=== PATIENT | female | born 1965 | race Caucasian/White ===

== ENCOUNTER 2018-10-18 18:18 | Emergency (ER) | payer OTHER ==
--- OUTSIDE RECORDS SUMMARY | 2018-10-18 19:12 | XMS REPORT | Continuity of Care Document ---
:1965 External Reference #:[id number] Author Name MARTHA Vyas (transmitted by agent of provider Jimmy Ramos) Address [address] 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 Problems Active Problems Provider Date Idiopathic urticaria MARTHA Vyas Onset: 10/14/2018 Allergy to other foods Jimmy Ramos MD Onset: 09/16/2018 Allergic urticaria Jimmy Ramos MD Onset: 09/16/2018 Social History Type Date Description Comments Sex Unknown Tobacco Use Start: Unknown Patient has never smoked Tobacco Use Start: Unknown No Second Hand Smoke Exposure Smoking Status Reviewed: 10/14/18 No Second Hand Smoke Exposure Allergies, Adverse Reactions, Alerts Description No Known Drug Allergies Medications Active Medications SIG Qnty Indications Ordering Provider Date Prednisone take 5 tablets 15tabs L50.0 Ericopher A. 10/14/2018 10mg Tablets by mouth for 3 MD Richard days. take with food. Clarinex one tablet 30tabs L50.0 Jimmy A. 09/16/2018 5mg Tablets every in the MD Richard morning Xyzal 1 tab by mouth 30tabs L50.0 Jimmy A. 09/16/2018 5mg Tablets every evening MD Richard Metronidazole Unknown 0.75% Cream History Medications Prednisone take 5 tablets by 15tabs Jimmy A. 10/07/2018 - 10mg mouth for 3 days. MD Richard 10/14/2018 Tablets take with food. Immunizations Description No Information Available Vital Signs Date Vital Result Comment 10/14/2018 3:35pm BP Systolic 128 mmHg BP Diastolic 78 mmHg Height 64 inches 5'4" Weight 180.00 lb BMI (Body Mass Index) 30.9 kg/m2 Heart Rate 70 /min Respiratory Rate 16 /min O2 % BldC Oximetry 98 % 09/16/2018 4:04pm BP Systolic 122 mmHg BP Diastolic 78 mmHg Height 64 inches 5'4" Weight 180.00 lb BMI (Body Mass Index) 30.9 kg/m2 Heart Rate 74 /min Respiratory Rate 18 /min O2 % BldC Oximetry 96 % Results Description No Information Available Procedures Date Code Description Status 09/16/2018 63657 Allergy Tests Percutaneous W/ Allergenic Extracts Completed Medical Devices Description No Information Available Encounters Type Date Location Provider Dx Diagnosis Office Visit 10/14/2018 3:30p MARTHA Melchor L50.0 Allergic urticaria Z91.018 Allergy to other foods L50.1 Idiopathic urticaria Office Visit 09/16/2018 4:00p Medardo Ramos L50.0 Allergic urticaria Z91.018 Allergy to other foods Assessments Date Code Description Provider 10/14/2018 L50.0 Allergic urticaria MARTHA Vyas 10/14/2018 Z91.018 Allergy to other foods MARTHA Vyas 10/14/2018 L50.1 Idiopathic urticaria MARTHA Vyas 09/16/2018 L50.0 Allergic urticaria Jimmy Ramos MD 09/16/2018 Z91.018 Allergy to other foods Jimmy Ramos MD Plan of Treatment 10/14/2018 - Meet [facility] PAL50.0 Allergic urticariaNew Medication:Prednisone 10 mg - take 5 tablets by mouth for 3 days. take with food.Z91.018 Allergy to other mvptpW78.1 Idiopathic urticariaComments:Patient's Environmental skin test showed 2+ positive to rice and sesame. Patient will stop consuming rice and sesame for 2 weeks. Patient will then reintroduce these foods one at a time back into [facility] and observe for any allergic reaction. If possible, patient should discontinue her antihistamine medications at this time. Patient's liver function and thyroid are both within normal limits. Patient's CBC is also within normal limits. Patient's sed rate and OMAR are both elevated. Patient's sesame and rice IgE blood test both showed negative. Patient to restart prednisone as prescribed for3 days. Patient will start Xyzal in the p.m. and continue Clarinex in the a.m. as suppressive antihistamine therapy. Patient will contact this office in 3 days to update us on her well- being.Patient may be a candidate for Xolair. Patient has been on prednisone numerous times for urticaria exacerbation. Xolair therapy was discussed with patient. Patient given a handout on Xolair. Greater than 50%of the 25-minute visit was spent in discussion of the testing results and treatment options. Functional Status Description No Information Available Mental Status Description No Information Available Referrals Description No Information Available
--- OUTSIDE RECORDS SUMMARY | 2018-10-18 19:12 | XMS REPORT | Continuity of Care Document ---
:1965 External Reference #:[id number] Author Name MARTHA Vyas (transmitted by agent of provider Kaylee Colmenares) Address [address] [place] 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 09/16/2018 5mg Tablets every in the MD Richard morning Xyzal 1 tab by mouth 30tabs L50.0 Jimmy A. 09/16/2018 5mg Tablets every evening MD Richard Metronidazole Unknown 0.75% Cream History Medications Prednisone take 5 tablets by 15tabs Jimmy Armando. 10/07/2018 - 10mg mouth for 3 days. [...] Available Procedures Date Code Description Status 09/16/2018 54021 Allergy Tests Percutaneous W/ Allergenic Extracts Completed Medical Devices Description No Information Available Encounters Type Date Location Provider Dx Diagnosis Office Visit 09/16/2018 [place] Jimmy Ramos, L50.0 Allergic urticaria 4:00p Z91.018 Allergy to other foods Assessments Date Code Description Provider 09/16/2018 L50.0 Allergic urticaria Jimmy Ramos MD 09/16/2018 Z91.018 Allergy to other foods Jimmy Ramos MD Plan of Treatment No Information Available Functional Status Description No Information Available Mental Status Description No Information Available Referrals Description No Information Available
[2018-10-18 19:37] VITALS: BP 132/79
[2018-10-18] MEDS ORDERED: Famotidine TAB* 20 MG PO ONE (19:59)
--- NOTE | 2018-10-18 19:59 | UC ---
Skin Complaint HPI - HPI Summary HPI Summary: 52-year-old female who has a hive-like rash in some places and a rash on her hands it is painful please read the nurse's triage notes for the details of the specialists which she has seen. She comes here tonight because there is been no improvement however she is under the care of an military pilot as well as a can technician. She is no worse tonight than she has been over the past couple of weeks. She has been on 50 mg of prednisone for the past 4 days with her last dose being tomorrow. She's had a biopsy of one of the red areas and the result was hives. She denies any difficulty breathing or wheezing. - History of Current Complaint Chief Complaint: UCRash Time Seen by Provider: 10/18/18 19:19 Stated Complaint: SKIN COMPLAINT Hx Obtained From: Patient ?: No Onset/Duration: Gradual Onset, Lasting Weeks Skin Exposure Onset/Duration: Weeks Ago Timing: Constant Onset Severity: Mild Current Severity: Moderate Pain Intensity: 6 Location: Diffuse, Hand (Right), Hand (Left) - Both hands have some reddish lesions on them and she states both hands are painful and have been over the past few days however her physician is aware of this. Character: Pain, Hives, Redness - She denies any itching however as I'm talking to her she is scratching some of the areas. Aggravating Factor(s): Nothing Alleviating Factor(s): Other - Patient states that the prednisone which she has been on in the past helps the rash but then the minute she is off the prednisone it returns. Associated Signs & Symptoms: Positive: Rash - Allergy/Home Medications Allergies/Adverse Reactions: Allergies Allergy/AdvReac Type Severity Reaction Status Date / Time No Known Allergies Allergy Verified 10/18/18 19:37 Home Medications: Home Medications Desloratidine (NF) [Clarinex (NF)] 5 mg PO DAILY 10/18/18 [History Confirmed ] LevoCETirizine TAB (NF) [Xyzal TAB (NF)] 5 mg PO BEDTIME 10/18/18 [History Confirmed 10/18/18] Vitamin C/Biotin [Hair, Skin and Nails Gummies] 1 tab DAILY 10/18/18 [History Confirmed 10/18/18] predniSONE TAB* [Deltasone TAB*] 50 mg PO DAILY 10/18/18 [History Confirmed ] PMH/Surg Hx/FS Hx/Imm Hx Previously Healthy: Yes Other Endocrine History: lupus - Surgical History Surgical History: Yes Surgery Procedure, Year, and Place: Tubal. Hernia repair as an - Family History Known Family History: Positive: Non-Contributory - Social History Alcohol Use: None Substance Use Type: None Smoking Status (MU): Never Smoked Tobacco Review of Systems All Other Systems Reviewed And Are Negative: Yes Skin: Positive: Rash - Patient denies itching however as I'm talking to her she is scratching some of the areas on her hands. Motor: Positive: Negative Neurovascular: Positive: Negative Musculoskeletal: Positive: Negative, Myalgia, Other: - Patient states the hand pain is mildly worse this evening than it has been. Neurological: Positive: Negative Psychological: Positive: Negative Is Patient Immunocompromised?: No Physical Exam Triage Information Reviewed: Yes Appearance: Well-Appearing, No Pain Distress, Well-Nourished Vital Signs: Initial Vital Signs Temp 97.7 F 10/18/18 19:14 Pulse 62 10/18/18 19:14 Resp 16 10/18/18 19:14 BP 132/79 10/18/18 19:14 Pulse Ox 99 10/18/18 19:14 Vital Signs Reviewed: Yes Respiratory: Positive: Lungs clear, Normal breath sounds, No respiratory distress, No accessory muscle use Cardiovascular: Positive: RRR, No Murmur, Pulses Normal, Brisk Capillary Refill Musculoskeletal Exam: Normal Musculoskeletal: Positive: Strength Intact, ROM Intact, No Edema Neurological: Positive: Alert, Muscle Tone Normal Psychological Exam: Normal Skin: Positive: Rashes - Patient has some red mildly raised hive like areas on her upper arms, the areas on her hand are dark red not cellulitis, not hives, nontender on palpation however she states her hands are painful. No secondary skin infection. Course/Dx - Course Course Of Treatment: I'm going to do a tapering prednisone dose for her starting after tomorrow, she was given Pepcid 40 mg by mouth here, she has an appointment with her military pilot on Saturday, she has some point with her can technician the end of October. She is to go to the emergency room if she has any difficulty breathing or wheezing. I advised her that she needs to continue with the specialists to further investigate the cause of the rash rather than going to several different places. - Diagnoses Provider Diagnosis: Rash and nonspecific skin eruption Discharge - Sign-Out/Discharge Documenting (check all that apply): Patient Departure All imaging exams completed and their final reports reviewed: No Studies - Discharge Plan Condition: Fair Disposition: HOME Prescriptions: Famotidine TAB* [Pepcid 20 MG TAB*] 20 mg PO BID 10 Days #20 tab predniSONE TAB* [Deltasone 10 MG TAB*] 10 mg PO DAILY 12 Days #30 tab Patient Education Materials: Acute Rash (ED) Referrals: Estephania Angeles MD [Primary Care Provider] - Additional Instructions: Take the prednisone with food starting Saturday, start the Pepcid tomorrow since she were given 1 dose here. Keep your appointment with your military pilot on Saturday. - Billing Disposition and Condition Condition: FAIR Disposition: Home - Attestation Statements Provider Attestation: I was available for consult. This patient was seen by the AZUL. The patient was not presented to, seen by, or examined by me. -Alex
== END 2018-10-18 20:10 | disposition home or self-care (01) ==
LOC: UCCORT 18:18
DX: R21 Rash and other nonspecific skin eruption (principal); M32.9 Systemic lupus erythematosus, unspecified
CPT/HCPCS: 99212; A9270-GY; G0463